=== PATIENT | female | born 1995 | race Caucasian/White ===

== ENCOUNTER 2021-05-25 07:53 | Outpatient (CLI) | payer OTHER ==
[~2021-05-25] VITALS: Ht 172.7 cm; Wt 64.9 kg
[2021-05-25] MEDS ORDERED: NORE0.3520 PO (08:32)
[2021-05-25] MEDS ORDERED: PREN1TAB79 PO (08:32)
[2021-05-25] MEDS ORDERED: MECO10005 PO (08:51)
[2021-05-25] MEDS ORDERED: BALS750C PO (08:51)
== END 2021-05-25 09:00 | disposition home or self-care (01) ==
LOC: PREOP 07:53
PROVIDERS: ATTEND Obstetrics & Gynecology
DX: Z01.818 Encounter for other preprocedural examination (principal)

== ENCOUNTER 2021-05-29 07:59 | Day surgery (SDC) | payer OTHER ==
[2021-05-29] VITALS (10 sets, daily range): BP systolic 110–130; BP diastolic 63–84
[~2021-05-29] VITALS: Ht 172.7 cm; Wt 64.9 kg
[~2021-05-29 07:59] MED LIST: BALS750C PO; MECO10005 PO; NORE0.3520 PO; PREN1TAB79 PO
[2021-05-29] MEDS ORDERED: proPOfol 200 MG/20 ML (DIPRIVAN) VIAL IV ONE (08:01)
[2021-05-29] MEDS ORDERED: fentaNYL INJ 100 MCG/2 ML AMP ONE (08:01)
[2021-05-29] MEDS ORDERED: LIDOCAINE PF 2% 5 ML (XYLOCAINE) VIAL ONE (08:01)
[2021-05-29] MEDS ORDERED: ONDANSETRON 4 MG/2 ML (SDV) Z0FRAN ONE (08:01)
[2021-05-29] MEDS ORDERED: MIDAZOLAM 2 MG/2 ML (VERSED) VIAL ONE (08:02)
[2021-05-29] MEDS ORDERED: NS (IVPB) 0 ML ONE (08:09)
[2021-05-29] MEDS ORDERED: LIDOCAINE/EPI 1%-1:100,000 (XYLOCAINE) 20ML ONE (08:09)
[2021-05-29] MEDS ORDERED: BUPIVACAINE 0.5% 30 ML (SENSORCAINE) VIAL ONE (08:10)
[2021-05-29] MEDS ORDERED: VASOPRESSIN INJECTION 20 UNIT/ML VIAL ONE (08:10)
[2021-05-29] MEDS ORDERED: ceFAZolin INJECTION 1,000 MG in WATER (STERILE) FOR INJECTION 10 ML IV ONE (08:15)
[2021-05-29] MEDS ORDERED: LACTATED RINGERS 1,000 ML IV PRN (08:15)
[2021-05-29] MEDS ORDERED: metroNIDAZOLE 500MG/100ML IVPB 100 ML IV ONE (08:15)
[2021-05-29 08:44] LABS: BASOPHILS # (AUTO) 0.1 10^3/uL (0.0-0.1); BASOPHILS % (AUTO) 1 % (0-10); EOSINOPHILS # (AUTO) 0.5 10^3/uL (0.0-0.3); EOSINOPHILS % (AUTO) 6 % (0-10); HEMATOCRIT 38 % (35-52); HEMOGLOBIN 12.1 g/dL (11.5-16.0); LYMPHOCYTES # (AUTO) 2.6 10^3/uL (1.0-4.0); LYMPHOCYTES % (AUTO) 30 % (12-44); MEAN CORPUSCULAR HEMOGLOBIN 26 pg (25-34); MEAN CORPUSCULAR HGB CONC 32 g/dL (32-36); MEAN CORPUSCULAR VOLUME 82 fL (80-99); MEAN PLATELET VOLUME 9.5 fL (9.0-12.2); MONOCYTES # (AUTO) 0.6 10^3/uL (0.0-1.0); MONOCYTES % (AUTO) 7 % (0-12); NEUTROPHILS # (AUTO) 4.9 10^3/uL (1.8-7.8); NEUTROPHILS % (AUTO) 56 % (42-75); PLATELET COUNT 424 10^3/uL (130-400); WHITE BLOOD COUNT 8.6 10^3/uL (4.3-11.0)
--- NOTE | 2021-05-29 09:34 | Discharge Inst-Women's Service ---
Discharge Inst-Women's Serv Depart Medication/Instructions New, Converted or Re-Newed RX: Transmitted to Pharmacy Problems Reviewed?: Yes Consults/Follow Up Orders/Referrals Dr. Forbes in 6 weeks Activity Activity: Activity as Tolerated (no driving if taking hydrocodone) Driving Instructions: You May Drive NO SMOKING: NO SMOKING Nothing Inside Vagina: No Douching, No [place], No Tampons Diet Discharge Diet: No Restrictions Symptoms to Report to : Bleeding Excessive, Pain Increased, Fever Over 101 Degrees F, Vaginal Bleeding Increase, Questions/Concerns For Any Problems or Questions: Contact Your Physician CHAO FORBES DO May 29, 2021 09:34
[2021-05-29] MEDS ORDERED: IBUP-1773 PO (09:35)
[2021-05-29] MEDS ORDERED: ACHD5005 PO (09:35)
[2021-05-29] MEDS ORDERED: SEVOFLURANE (ULTANE) 15 ML INHAL SOLN ONE (09:41)
[2021-05-29] MEDS ORDERED: KETOROLAC 30 MG/ML VIAL IVP ONE (09:45)
[2021-05-29] MEDS ORDERED: morphine INJ 10 MG/ML 1ML (SYR OR VIAL) IVP ONE (09:45)
[2021-05-29] MEDS ORDERED: D5 LR IV SOLUTION 1,000 ML IV SCH (09:45)
[2021-05-29] MEDS ORDERED: HYDROcodone/APAP 5 MG/325 MG (LORTAB) TAB PO PRN (09:45)
[2021-05-29] MEDS ORDERED: ONDANSETRON 4 MG/2 ML (SDV) Z0FRAN IVP PRN ×2 (09:45)
--- NOTE | 2021-05-29 14:40 | OPERATIVE REPORT ---
DATE OF SERVICE: PREOPERATIVE DIAGNOSIS: A 25-year-old female with overcorrection of the episiotomy repair after childbirth. POSTOPERATIVE DIAGNOSIS: A 25-year-old female with overcorrection of the episiotomy repair after childbirth. PROCEDURE: Episiotomy revision. SURGEON: Chao Forbes DO ANESTHESIA: LMA general. ESTIMATED BLOOD LOSS: Minimal. URINE OUTPUT: 80 mL drained at the end of procedure. FLUIDS: 800 mL lactated Ringer's solution. FINDINGS: Narrowed vaginal introitus approximately 1 to 1.5 cm in diameter. Grossly normal-appearing external female genitalia otherwise. SPECIMEN SENT: None. INDICATIONS FOR PROCEDURE: This 25-year-old female is a patient who had sought a second opinion in my office due to concerns with not being able to have intercourse after vaginal delivery approximately 2 months ago. She states that her is unable to insert into the vagina without causing a tearing sensation, so they were unable to have sex. I discussed with the patient after evaluating this by myself, more conservative measures including estrogen use and use of vaginal dilators to allow for more opening or penetration at the introitus. The patient demonstrated understanding of this. However, we also discussed how this could be 6-8 months timeframe before we notice any benefit. The patient would like to proceed with something a little bit more faster as far as recovery timeframe and allowing her to have sex with her . I discussed with the patient episiotomy revision. Risks of the procedure including risk of bleeding, infection and scarring, disfiguration of the vulva as well. After everything was discussed with the patient and her in detail, they were agreeable to proceed. Consent was obtained, the patient was taken to the operating room. OPERATIVE REPORT IN DETAIL: Once in the operating room, anesthesia was found to be adequate. She was placed in the dorsal lithotomy position, prepped and draped in normal sterile fashion. Timeout was performed. I then performed an episiotomy down the midline in the similar fashion that it was performed at the time of her delivery. This opened up the mucosa and submucosa and cutaneous and subcutaneous margins of the skin in the mucocutaneous junction. I then reapproximated them in a transverse fashion using 4-0 Vicryl suture in interrupted fashion. This allows for a wider opening at the vaginal introitus. After the procedure, I am able to insert 2 fingers with still some room to spare, which is a vast improvement from her preoperative vaginal opening. There is no active bleeding noted from any of my dissection planes. The patient tolerated the procedure well and sent to recovery area in stable condition. A straight catheterization was used to drain the bladder prior to removal from the operating room table. Lap and sponge counts were correct at the end of the procedure. Instrument counts correct as well. Job ID: [id number] DocumentID: [id number] Dictated Date: 05/29/2021 09:41:34 Ep Specialist Date: 05/29/2021 14:40:02 Dictated By: CHAO FORBES DO
--- NOTE | 2021-05-30 07:22 | Anesthesia-General Post-Op ---
General Patient Condition Mental Status/LOC: Same as Preop Cardiovascular: Satisfactory Nausea/Vomiting: Absent Respiratory: Satisfactory Pain: Controlled Complications: Absent Post Op Complications Complications None Follow Up Care/Instructions Patient Instructions None needed. Anesthesia/Patient Condition Patient Condition Patient was seen yesterday prior to her discharge to home and she was doing well, no complaints, stable vital signs, no apparent adverse anesthesia problems. MARYJANE HUMPHREY DO May 30, 2021 07:21
== END 2021-05-29 11:25 | disposition home or self-care (01) ==
LOC: SDC 07:59 → EDSTATUS 09:45 → SDC 11:25
PROVIDERS: ATTEND Obstetrics & Gynecology
DX: O90.1 Disruption of perineal obstetric wound (principal); N94.11 Superficial (introital) dyspareunia; Z79.899 Other long term (current) drug therapy
CPT/HCPCS: 36415; 84703; 85025; 86850; 86900; 86901; 87081; 94664